=== PATIENT | female | born 1945 | race American Indian/Alaskan Native ===

== ENCOUNTER 2018-12-06 20:14 | Inpatient (IN) | payer MEDICARE ==
[~2018-12-06 20:14] MED LIST: VANCOMYCIN 2,000 MG in NACL 0.9% 500 ML 500 ML IV ONE
[2018-12-06] MEDS ORDERED: INTROPIN DRIP 800 MG/D5W 250 ML 800 MG/250 ML BAG IV ONE ×2 (20:26→22:50)
[2018-12-06] MEDS ORDERED: NACL 0.9% 1000 ML 1,000 ML IV ONE (20:28)
[2018-12-06] MEDS ORDERED: VANCOMYCIN/NS 1 GM/250 ML 1 GM/250 ML BAG IV ONE (20:29)
--- NOTE | 2018-12-06 20:33 | Emergency Department Report ---
ED Altered Mental Status HPI - General Stated Complaint: AMS Time Seen by Provider: 12/06/18 20:26 - History of Present Illness Initial Comments: Patient is 73 years old female with history of stroke and diabetes. Patient brought to the emergency room via EMS from home for evaluation of decrease unresponsiveness and altered mental status since yesterday. Family stated that patient was recently discharged from [facility] for sepsis. Upon arrival to the ER patient is gasping for breath with a GCS of 3. Patient immediately intubated by me after I discussed with the family whole indicated that patient is a full code and they want everything to be done. Patient does not have a gag reflex. Unable to obtain more history at this time. MD Complaint: altered mental status, decreased responsiveness Severity: severe - Related Data Home Medications Medication Instructions Recorded Confirmed Last Taken HYDROcodone/APAP 5-325 [[place]burn 1 tab PO Q4HR PRN 08/18/13 08/18/13 Unknown 5-325 mg TAB] Sulfamethoxazole/Trimethoprim 1 tab PO BID 08/24/13 08/24/13 Unknown [Bactrim DS] Allergies Allergy/AdvReac Type Severity Reaction Status Date / Time No Known Allergies Allergy Unverified 08/18/13 10:22 ED Review of Systems ROS: Stated complaint: AMS Other details as noted in HPI Comment: Unobtainable due to pts medical conditions ED Past Medical Hx - Past Medical History Hx Diabetes: No - Social History Smoking Status: Never Smoker - Medications Home Medications: Home Medications Medication Instructions Recorded Confirmed Last Taken Type HYDROcodone/APAP 5-325 [[place]burn 1 tab PO Q4HR PRN 08/18/13 08/18/13 Unknown History 5-325 mg TAB] Sulfamethoxazole/Trimethoprim 1 tab PO BID 08/24/13 08/24/13 Unknown History [Bactrim DS] ED Physical Exam - General General appearance: obtunded, other (gasping for breath) - Head Head exam: Present: atraumatic, normocephalic - Eye Eye exam: Present: normal appearance - ENT ENT exam: Present: mucous membranes dry - Respiratory Respiratory exam: Present: respiratory distress, rales, decreased breath sounds - Cardiovascular Cardiovascular Exam: Present: tachycardia - GI/Abdominal GI/Abdominal exam: Present: soft. Absent: distended - Neurological Exam Neurological exam: Present: altered - Skin Skin exam: Present: other (multiple pressure ulcers.) ED Course Vital Signs 12/06/18 12/06/18 20:15 21:16 Pulse Rate 116 H 99 H Respiratory 22 Rate Blood Pressure 70/40 97/45 O2 Sat by Pulse 100 100 Oximetry - Reevaluation(s) Reevaluation #1: 12/07/18 00:11 Patient went into asystole. ACLS protocol initiated. Patient received 1 mg of epi and round of CPR. Patient regained her pulse. Patient had good breath sounds on both sides. - Central Line Placement Right IJ Consent Obtained: emergent situation Time Out Performed: Yes Patient Placed on Monitor/Pulse Ox: Yes MD Prep: mask, gown, gloves Central Line Prep: Chlorhexidine scrub Local Anesthesia Used: Lidocaine 2% Ultrasound Used for Placement: Yes Central Line Lumen Inserted: triple Bloods Obtained for Lab: Yes Central Line Position: good blood return, all ports aspirated, flus, sutured in place with 2-0 Dressing Applied: Tegaderm, sterile gauze/tape Post Procedure X-Ray: tip of catheter in good p Patient Tolerated Procedure: well, no complications Complications: none - Chest Tube Chest Tube Location: forth interspace Chest Tube Procedure: betadine prep, sterile drapes applied, sterile dressing applied Anesthesia: 1% Lidocaine w/ Epi [place] of Air [place]: Yes Number of Attempts: 1 Tube Drainage: see nurses notes Tube Sutured to Skin: Yes Post Procedure CXR?: Yes - Intubation Time Out Performed: Yes Sedative: none Laryngoscope: Keren Size: 4 ET Tube Size: 7.5 Tube Secured Location: teeth Tube Placement Confirmation: visualized tube passing t, equal breath sounds bilat, no breath sounds over epi, confirmation by capnometr Patient Tolerated Procedure: well, no complications Intubation Complications: none - Lab Data Result diagrams: 12/06/18 21:17 12/06/18 21:17 Lab Results 12/06/18 12/06/18 12/06/18 Range/Units 21:17 21:17 21:17 WBC 17.8 H (4.5-11.0) K/mm3 RBC 2.77 L (3.65-5.03) M/mm3 Hgb 7.9 L (10.1-14.3) gm/dl Hct 25.3 L (30.3-42.9) % MCV 92 (79-97) fl MCH 29 (28-32) pg MCHC 31 (30-34) % RDW 15.2 (13.2-15.2) % Plt Count 176 (140-440) K/mm3 Add Manual Diff Complete Total Counted 100 Seg Neuts % (Manual) 92.0 H (40.0-70.0) % Band Neutrophils % 0 % Lymphocytes % (Manual) 4.0 L (13.4-35.0) % Reactive Lymphs % (Man) 0 % Monocytes % (Manual) 4.0 (0.0-7.3) % Eosinophils % (Manual) 0 (0.0-4.3) % Basophils % (Manual) 0 (0.0-1.8) % Metamyelocytes % 0 % Myelocytes % 0 % Promyelocytes % 0 % Blast Cells % 0 % Nucleated RBC % Not Reportable Seg Neutrophils # Man 16.4 H (1.8-7.7) K/mm3 Band Neutrophils # 0.0 K/mm3 Lymphocytes # (Manual) 0.7 L (1.2-5.4) K/mm3 Abs React Lymphs (Man) 0.0 K/mm3 Monocytes # (Manual) 0.7 (0.0-0.8) K/mm3 Eosinophils # (Manual) 0.0 (0.0-0.4) K/mm3 Basophils # (Manual) 0.0 (0.0-0.1) K/mm3 Metamyelocytes # 0.0 K/mm3 Myelocytes # 0.0 K/mm3 Promyelocytes # 0.0 K/mm3 Blast Cells # 0.0 K/mm3 WBC Morphology Not Reportable Hypersegmented Neuts Not Reportable Hyposegmented Neuts Not Reportable Hypogranular Neuts Not Reportable Smudge Cells Not Reportable Toxic Granulation Not Reportable Toxic Vacuolation Not Reportable Dohle Bodies Not Reportable Pelger-Huet Anomaly Not Reportable Abdoulaye Rods Not Reportable Platelet Estimate Consistent w auto Clumped Platelets Not Reportable Plt Clumps, EDTA Not Reportable Large Platelets Not Reportable Giant Platelets Not Reportable Platelet Satelliting Not Reportable Plt Morphology Comment Not Reportable RBC Morphology Not Reportable Dimorphic RBCs Not Reportable Polychromasia Not Reportable Hypochromasia Not Reportable Poikilocytosis Not Reportable Anisocytosis Few Microcytosis Not Reportable Macrocytosis Not Reportable Spherocytes Not Reportable Pappenheimer Bodies Not Reportable Sickle Cells Not Reportable Target Cells Few Tear Drop Cells Not Reportable Ovalocytes Not Reportable Helmet Cells Not Reportable [place] Bodies Not Reportable Orinda Rings Not Reportable [place] Cells Not Reportable Bite Cells Not Reportable Crenated Cell Not Reportable Elliptocytes Not Reportable Acanthocytes (Spur) Not Reportable Rouleaux Not Reportable Hemoglobin C Crystals Not Reportable Schistocytes Not Reportable Malaria parasites Not Reportable Mariano Bodies Not Reportable Hem Pathologist Commnt No PT (12.2-14.9) Sec. INR (0.87-1.13) APTT (24.2-36.6) Sec. POC ABG pH (7.35-7.45) POC ABG pO2 (80-105) POC ABG HCO3 (22-26 mml/L) POC ABG Total CO2 (23-27mmol/L) POC ABG O2 Sat POC ABG Base Excess ((-2) - (+3)mmol/L) FiO2 % Sodium 133 L (137-145) mmol/L Potassium 3.7 (3.6-5.0) mmol/L Chloride 92.0 L (98-107) mmol/L Carbon Dioxide 22 (22-30) mmol/L Anion Gap 23 mmol/L BUN 60 H (7-17) mg/dL Creatinine 2.9 H (0.7-1.2) mg/dL Estimated GFR 19 ml/min BUN/Creatinine Ratio 21 % Glucose 163 H (65-100) mg/dL Lactic Acid 1.70 (0.7-2.0) mmol/L Calcium 8.3 L (8.4-10.2) mg/dL Total Bilirubin 0.40 (0.1-1.2) mg/dL AST 15 (5-40) units/L ALT 6 L (7-56) units/L Alkaline Phosphatase 95 (35-129) units/L Troponin T (0.00-0.029) ng/mL NT-Pro-B Natriuret Pep (0-900) pg/mL Total Protein 5.3 L (6.3-8.2) g/dL Albumin 1.7 L (3.9-5) g/dL Albumin/Globulin Ratio 0.5 % Triglycerides (2-149) mg/dL Cholesterol (50-199) mg/dL LDL Cholesterol Direct (50-130) mg/dL HDL Cholesterol (40-59) mg/dL Cholesterol/HDL Ratio % 12/06/18 12/06/18 12/06/18 Range/Units 21:17 21:17 21:17 WBC (4.5-11.0) K/mm3 RBC (3.65-5.03) M/mm3 Hgb (10.1-14.3) gm/dl Hct (30.3-42.9) % MCV (79-97) fl MCH (28-32) pg MCHC (30-34) % RDW (13.2-15.2) % Plt Count (140-440) K/mm3 Add Manual Diff Total Counted Seg Neuts % (Manual) (40.0-70.0) % Band Neutrophils % % Lymphocytes % (Manual) (13.4-35.0) % Reactive Lymphs % (Man) % Monocytes % (Manual) (0.0-7.3) % Eosinophils % (Manual) (0.0-4.3) % Basophils % (Manual) (0.0-1.8) % Metamyelocytes % % Myelocytes % % Promyelocytes % % Blast Cells % % Nucleated RBC % Seg Neutrophils # Man (1.8-7.7) K/mm3 Band Neutrophils # K/mm3 Lymphocytes # (Manual) (1.2-5.4) K/mm3 Abs React Lymphs (Man) K/mm3 Monocytes # (Manual) (0.0-0.8) K/mm3 Eosinophils # (Manual) (0.0-0.4) K/mm3 Basophils # (Manual) (0.0-0.1) K/mm3 Metamyelocytes # K/mm3 Myelocytes # K/mm3 Promyelocytes # K/mm3 Blast Cells # K/mm3 WBC Morphology Hypersegmented Neuts Hyposegmented Neuts Hypogranular Neuts Smudge Cells Toxic Granulation Toxic Vacuolation Dohle Bodies Pelger-Huet Anomaly Abdoulaye Rods Platelet Estimate Clumped Platelets Plt Clumps, EDTA Large Platelets Giant Platelets Platelet Satelliting Plt Morphology Comment RBC Morphology Dimorphic RBCs Polychromasia Hypochromasia Poikilocytosis Anisocytosis Microcytosis Macrocytosis Spherocytes Pappenheimer Bodies Sickle Cells Target Cells Tear Drop Cells Ovalocytes Helmet Cells [place] Bodies [place] Rings Tasia Cells Bite Cells Crenated Cell Elliptocytes Acanthocytes (Spur) Rouleaux Hemoglobin C Crystals Schistocytes Malaria parasites Mariano Bodies Hem Pathologist Commnt PT 18.1 H (12.2-14.9) Sec. INR 1.54 H (0.87-1.13) APTT 34.7 (24.2-36.6) Sec. POC ABG pH (7.35-7.45) POC ABG pO2 (80-105) POC ABG HCO3 (22-26 mml/L) POC ABG Total CO2 (23-27mmol/L) POC ABG O2 Sat POC ABG Base Excess ((-2) - (+3)mmol/L) FiO2 % Sodium (137-145) mmol/L Potassium (3.6-5.0) mmol/L Chloride (98-107) mmol/L Carbon Dioxide (22-30) mmol/L Anion Gap mmol/L BUN (7-17) mg/dL Creatinine (0.7-1.2) mg/dL Estimated GFR ml/min BUN/Creatinine Ratio % Glucose (65-100) mg/dL Lactic Acid (0.7-2.0) mmol/L Calcium (8.4-10.2) mg/dL Total Bilirubin (0.1-1.2) mg/dL AST (5-40) units/L ALT (7-56) units/L Alkaline Phosphatase (35-129) units/L Troponin T 0.132 H* (0.00-0.029) ng/mL NT-Pro-B Natriuret Pep 03599 H (0-900) pg/mL Total Protein (6.3-8.2) g/dL Albumin (3.9-5) g/dL Albumin/Globulin Ratio % Triglycerides 88 (2-149) mg/dL Cholesterol 59 (50-199) mg/dL LDL Cholesterol Direct 14 L (50-130) mg/dL HDL Cholesterol 25 L (40-59) mg/dL Cholesterol/HDL Ratio 2.36 % 12/06/18 12/06/18 Range/Units 21:47 22:58 WBC (4.5-11.0) K/mm3 RBC (3.65-5.03) M/mm3 Hgb (10.1-14.3) gm/dl Hct (30.3-42.9) % MCV (79-97) fl MCH (28-32) pg MCHC (30-34) % RDW (13.2-15.2) % Plt Count (140-440) K/mm3 Add Manual Diff Total Counted Seg Neuts % (Manual) (40.0-70.0) % Band Neutrophils % % Lymphocytes % (Manual) (13.4-35.0) % Reactive Lymphs % (Man) % Monocytes % (Manual) (0.0-7.3) % Eosinophils % (Manual) (0.0-4.3) % Basophils % (Manual) (0.0-1.8) % Metamyelocytes % % Myelocytes % % Promyelocytes % % Blast Cells % % Nucleated RBC % Seg Neutrophils # Man (1.8-7.7) K/mm3 Band Neutrophils # K/mm3 Lymphocytes # (Manual) (1.2-5.4) K/mm3 Abs React Lymphs (Man) K/mm3 Monocytes # (Manual) (0.0-0.8) K/mm3 Eosinophils # (Manual) (0.0-0.4) K/mm3 Basophils # (Manual) (0.0-0.1) K/mm3 Metamyelocytes # K/mm3 Myelocytes # K/mm3 Promyelocytes # K/mm3 Blast Cells # K/mm3 WBC Morphology Hypersegmented Neuts Hyposegmented Neuts Hypogranular Neuts Smudge Cells Toxic Granulation Toxic Vacuolation Dohle Bodies Pelger-Huet Anomaly Abdoulaye Rods Platelet Estimate Clumped Platelets Plt Clumps, EDTA Large Platelets Giant Platelets Platelet Satelliting Plt Morphology Comment RBC Morphology Dimorphic RBCs Polychromasia Hypochromasia Poikilocytosis Anisocytosis Microcytosis Macrocytosis Spherocytes Pappenheimer Bodies Sickle Cells Target Cells Tear Drop Cells Ovalocytes Helmet Cells Mo-[place] Bodies [place] Rings [place] Cells Bite Cells Crenated Cell Elliptocytes Acanthocytes (Spur) Rouleaux Hemoglobin C Crystals Schistocytes Malaria parasites Mariano Bodies Hem Pathologist Commnt PT (12.2-14.9) Sec. INR (0.87-1.13) APTT (24.2-36.6) Sec. POC ABG pH 7.538 H (7.35-7.45) POC ABG pO2 61 L (80-105) POC ABG HCO3 20.7 (22-26 mml/L) POC ABG Total CO2 21 (23-27mmol/L) POC ABG O2 Sat 94 POC ABG Base Excess -2 ((-2) - (+3)mmol/L) FiO2 100 % Sodium (137-145) mmol/L Potassium (3.6-5.0) mmol/L Chloride (98-107) mmol/L Carbon Dioxide (22-30) mmol/L Anion Gap mmol/L BUN (7-17) mg/dL Creatinine (0.7-1.2) mg/dL Estimated GFR ml/min BUN/Creatinine Ratio % Glucose (65-100) mg/dL Lactic Acid 2.80 H* (0.7-2.0) mmol/L Calcium (8.4-10.2) mg/dL Total Bilirubin (0.1-1.2) mg/dL AST (5-40) units/L ALT (7-56) units/L Alkaline Phosphatase (35-129) units/L Troponin T (0.00-0.029) ng/mL NT-Pro-B Natriuret Pep (0-900) pg/mL Total Protein (6.3-8.2) g/dL Albumin (3.9-5) g/dL Albumin/Globulin Ratio % Triglycerides (2-149) mg/dL Cholesterol (50-199) mg/dL LDL Cholesterol Direct (50-130) mg/dL HDL Cholesterol (40-59) mg/dL Cholesterol/HDL Ratio % - EKG Data -: EKG Interpreted by Me EKG shows normal: sinus rhythm Rate: normal Interpretation: no acute changes - Radiology Data Radiology results: report reviewed - Medical Decision Making Patient is 73 years old female with history of stroke and diabetes. Patient brought to the emergency room via EMS from home for evaluation of decrease unresponsiveness and altered mental status since yesterday. Family stated that patient was recently discharged from [facility] for sepsis. Upon arrival to the ER patient is gasping for breath with a GCS of 3. Patient immediately intubated by me after I discussed with the family whole indicated that patient is a full code and they want everything to be done. Patient does not have a gag reflex. Unable to obtain more history at this time. Patient found to be in severe sepsis with a blood pressure 77/35. Patient started with normal saline. Right internal jugular central line placed by me for resuscitation and vasopressor. Patient is started on Levophed. Chest x-ray showed a right sided pneumothorax, moderate. Chest tube placed by me with no complication. I discussed the patient with Dr. Elias, he agreed to admit the patient to medical service. Critical Care Time: Yes Critical care time in (mins) excluding proc time.: 60 Critical care attestation.: If time is entered above; I have spent that time in minutes in the direct care of this critically ill patient, excluding procedure time. ED Disposition Clinical Impression: Acute respiratory failure, Severe sepsis, Pneumothorax on right, Cardiopulmonary arrest Disposition: 09 OP ADMIT IP TO THIS HOSP Is pt being admited?: Yes Condition: Stable Referrals: PRIMARY CARE, [Primary Care Provider] - 3-5 Days
[2018-12-06] MEDS ORDERED: ZOSYN/NS 3.375GM/50ML 3.375 GM/50 ML BAG IV ONE (21:00)
[2018-12-06] MEDS ORDERED: LEVOPHED DRIP 4 MG/NS 250 ML 4 MG/250 ML BAG IV ONE (21:05)
[2018-12-06] MEDS ORDERED: LEVOPHED DRIP 4 MG/NS 250 ML 4 MG/250 ML BAG IV SCH ×2 (21:12→22:00)
[2018-12-06 21:29] LABS: Hematocrit 25.3 % (30.3-42.9); Hemoglobin 7.9 gm/dl (10.1-14.3); Mean Corpuscular HGB Conc 31 % (30-34); Mean Corpuscular Volume 92 fl (79-97); Platelet Count 176 K/mm3 (140-440); Red Blood Count 2.77 M/mm3 (3.65-5.03); Red Cell Distribution Width 15.2 % (13.2-15.2)
[2018-12-06 21:41] LABS: INR 1.54 (0.87-1.13)
[2018-12-06 21:42] LABS: Partial Thromboplastin Time 34.7 Sec. (24.2-36.6)
[2018-12-06 21:53] LABS: Albumin 1.7 g/dL (3.9-5); Calcium 8.3 mg/dL (8.4-10.2)
[2018-12-06 22:00] LABS: Basophils % (Manual) 0 % (0.0-1.8); Eosinophils % (Manual) 0 % (0.0-4.3); Total Cells Counted 100
[2018-12-06 22:02] LABS: Anisocytosis Few; Platelet Estimate Consistent w Auto; Target Cells Few
--- NOTE | 2018-12-06 22:24 | XRay Report ---
CHEST 1 VIEW, 12/06/2018 9:45 PM INDICATION: Altered mental status. Endotracheal tube placement. COMPARISON: None. Previous chest radiograph was unable to be retrieved from the archives. FINDINGS: Support devices: Nasogastric tube is present with tip below the level of the diaphragm. Endotracheal tube is present with tip approximately 2 cm above the level of the pineda. A right sided central cat heter projects over the right chest with tip overlying the right upper mediastinum. The placement of the tip is indeterminate. Heart: The cardiac silhouette is normal in size. Lungs/pleura: There is a moderate sized right-sided pneumothorax. The left lung appears grossly clear . IMPRESSION: 1. Moderate sized right-sided pneumothorax. 2. Right-sided central catheter with indeterminate tip positioning. Positive critical value of right-sided pneumothorax was identified at 9:10 PM and personally communic ated to the charge nurse Modesta Skinner at 9:18 PM. The positioning of the right-sided central line tip was also directly communicated. A read back was performed. Signer Name: Barb Burk MD Signed: 12/06/2018 10:20 PM Workstation Name: [id number]
[2018-12-06 22:25] LABS: Chol/HDL Ratio 2.36 %
--- NOTE | 2018-12-06 23:05 | XRay Report ---
CHEST 1 VIEW INDICATION / CLINICAL INFORMATION: chest tube placement. COMPARISON: 12/06/2018 at 2145 hours FINDINGS: SUPPORT DEVICES: Nasogastric tube, right central venous line, small caliber right pleural drainage tu be HEART / MEDIASTINUM: No significant abnormality. LUNGS / PLEURA: No significant pulmonary or pleural abnormality. No pneumothorax. ADDITIONAL FINDINGS: No significant additional findings. IMPRESSION: 1. Placement of small caliber right pleural drainage tube with near complete resolution of the right- sided pneumothorax from earlier today. 2. The course of the right central venous line is unusual Signer Name: Estevan Michelle MD FACR Signed: 12/06/2018 11:01 PM Workstation Name: [id number]
[2018-12-07] MEDS ORDERED: ZOFRAN IV PRN (00:40)
[2018-12-07] MEDS ORDERED: TYLENOL PO PRN (00:40)
[2018-12-07] MEDS ORDERED: SODIUM CHLORIDE FLUSH SYRINGE 10 ML IV PRN (00:40)
[2018-12-07] MEDS ORDERED: VASELINE LIP THERAPY TP PRN (00:43)
[2018-12-07] MEDS ORDERED: ARTIFICIAL TEARS OPHTH OINT OU PRN (00:43)
[2018-12-07] MEDS ORDERED: INTROPIN DRIP 800 MG/D5W 250 ML 800 MG/250 ML BAG IV ONE (00:46)
[2018-12-07] MEDS ORDERED: NACL 0.9% 1000 ML 1,000 ML IV ONE (00:53)
[2018-12-07] MEDS ORDERED: NACL 0.9% 1000 ML 1,000 ML IV SCH (01:00)
--- NOTE | 2018-12-07 01:03 | History and Physical Report ---
History of Present Illness Date of examination: 12/07/18 Chief complaint: AMS per report History of present illness: Patient is a 73-year-old female with history of stroke with residual right-sided weakness who was brought to the ED via EMS on account of altered mental status. Of note, pt was unable to provide history, so history was obtained from the who was at the bedside. He reported that the patient was discharged from the hospital about 4 months ago after which she was discharged to a rehabilitation facility and subsequently discharged to home on hospice. However, her code status remained a full code. Yesterday, the found the unresponsive at about 11 AM, so he called the hospice nurse. Prior to that, he stated that the complained of left shoulder pain which is chronic and nausea without vomiting. No reported history of chest pain, shor tness of breath or recent fall. Past History Past Medical History: diabetes, hypertension, other (stroke with residual right- sided weakness) Past Surgical History: No surgical history Social history: no significant social history (no reported history of tobacco, alcohol or illicit drug use) Family history: other (her mom had hypertension and diabetes per the ) Medications and Allergies Allergies Allergy/AdvReac Type Severity Reaction Status Date / Time No Known Allergies Allergy Unverified 08/18/13 10:22 Home Medications Medication Instructions Recorded Confirmed Last Taken Type HYDROcodone/APAP 5-325 [Borger 1 tab PO Q4HR PRN 08/18/13 08/18/13 Unknown History 5-325 mg TAB] Sulfamethoxazole/Trimethoprim 1 tab PO BID 08/24/13 08/24/13 Unknown History [Bactrim DS] Active Meds: Active Medications Acetaminophen (Tylenol) 650 mg PO Q4H PRN PRN Reason: Pain MILD(1-3)/Fever >100.5/SOTO Heparin Sodium (Porcine) (Heparin) 5,000 unit SUB-Q Q8HR [facility]AN Hydrophilic Ointment (Vaseline Lip Therapy) 1 applic TP Q2HR PRN PRN Reason: Dry Lips Norepinephrine (Levophed Drip 4 Mg/Ns 250 Ml) 4 mg in 250 mls @ 7.5 mls/hr IV TITR J[facility]ONATAN; Protocol Last Titration: 12/06/18 22:50 Dose: 20 mcg/min, 75 mls/hr Documented by: Dopamine HCl/Dextrose (Intropin Drip 800 Mg/D5w 250 Ml) 800 mg in 250 mls @ 3.825 mls/hr IV TITR ONE; Protocol Stop: 12/09/18 18:07 Sodium Chloride (Nacl 0.9% 1000 Ml) 1,000 mls @ 999 mls/hr IV BOLUS ONE Stop: 12/07/18 01:53 Sodium Chloride (Nacl 0.9% 1000 Ml) 1,000 mls @ 100 mls/hr IV DIRECT [facility] Multi-Ingred Cream/Lotion/Oil/Oint (Artificial Tears Ophth Oint) 1 applic OU Q4HR PRN PRN Reason: Dry Eye(s) Ondansetron HCl (Zofran) 4 mg IV Q8H PRN PRN Reason: Nausea And Vomiting Sodium Chloride (Sodium Chloride Flush Syringe 10 Ml) 10 ml IV BID J[facility]ATAN Sodium Chloride (Sodium Chloride Flush Syringe 10 Ml) 10 ml IV PRN PRN PRN Reason: LINE FLUSH Review of Systems ROS unobtainable: due to mental status Exam - Constitutional Vitals: Temp Pulse Resp BP Pulse Ox 99 H 22 97/45 100 12/06/18 21:16 12/06/18 20:15 12/06/18 21:16 12/06/18 21:16 General appearance: Present: no acute distress, obese, other (patient is intubated and on mechanical ventilator) - EENT Eyes: Present: irregular pupil ENT: other (patient is intubated ) - Neck Neck: Present: supple - Respiratory Respiratory effort: normal Respiratory: bilateral: diminished - Cardiovascular Rhythm: regular Heart Sounds: Present: S1 & S2 - Extremities Extremities: No edema - Abdominal General gastrointestinal: Present: soft, non-tender, normal bowel sounds, other (obese) Female genitourinary: Present: deferred - Integumentary Integumentary: Present: erythema - Musculoskeletal Musculoskeletal: right sided weakness (draining ulcers in bilateral heels) - Psychiatric Psychiatric: other (could not be assessed because patient is intubated) - Neurologic Neurologic: other (patient is intubated and on mechanical ventilator) Results - Labs CBC & Chem 7: 12/06/18 21:17 12/06/18 21:17 Labs: Laboratory Last Values WBC 17.8 K/mm3 (4.5-11.0) H 12/06/18 21:17 RBC 2.77 M/mm3 (3.65-5.03) L 12/06/18 21:17 Hgb 7.9 gm/dl (10.1-14.3) L 12/06/18 21:17 Hct 25.3 % (30.3-42.9) L 12/06/18 21:17 MCV 92 fl (79-97) 12/06/18 21:17 MCH 29 pg (28-32) 12/06/18 21:17 MCHC 31 % (30-34) 12/06/18 21:17 RDW 15.2 % (13.2-15.2) 12/06/18 21:17 Plt Count 176 K/mm3 (140-440) 12/06/18 21:17 Add Manual Diff Complete 12/06/18 21:17 Total Counted 100 12/06/18 21:17 Seg Neuts % (Manual) 92.0 % (40.0-70.0) H 12/06/18 21:17 0 % 12/06/18 21:17 4.0 % (13.4-35.0) L 12/06/18 21:17 Reactive Lymphs % (Man) 0 % 12/06/18 21:17 4.0 % (0.0-7.3) 12/06/18 21:17 0 % (0.0-4.3) 12/06/18 21:17 0 % (0.0-1.8) 12/06/18 21:17 0 % 12/06/18 21:17 0 % 12/06/18 21:17 0 % 12/06/18 21:17 0 % 12/06/18 21:17 Nucleated RBC % Not Reportable 12/06/18 21:17 Seg Neutrophils # Man 16.4 K/mm3 (1.8-7.7) H 12/06/18 21:17 Band Neutrophils # 0.0 K/mm3 12/06/18 21:17 0.7 K/mm3 (1.2-5.4) L 12/06/18 21:17 Abs React Lymphs (Man) 0.0 K/mm3 12/06/18 21:17 0.7 K/mm3 (0.0-0.8) 12/06/18 21:17 0.0 K/mm3 (0.0-0.4) 12/06/18 21:17 0.0 K/mm3 (0.0-0.1) 12/06/18 21:17 0.0 K/mm3 12/06/18 21:17 0.0 K/mm3 12/06/18 21:17 0.0 K/mm3 12/06/18 21:17 Blast Cells # 0.0 K/mm3 12/06/18 21:17 WBC Morphology Not Reportable 12/06/18 21:17 Hypersegmented Neuts Not Reportable 12/06/18 21:17 Hyposegmented Neuts Not Reportable 12/06/18 21:17 Hypogranular Neuts Not Reportable 12/06/18 21:17 Not Reportable 12/06/18 21:17 Not Reportable 12/06/18 21:17 Not Reportable 12/06/18 21:17 Not Reportable 12/06/18 21:17 Not Reportable 12/06/18 21:17 Not Reportable 12/06/18 21:17 Consistent w auto 12/06/18 21:17 Not Reportable 12/06/18 21:17 Plt Clumps, EDTA Not Reportable 12/06/18 21:17 Not Reportable 12/06/18 21:17 Not Reportable 12/06/18 21:17 Not Reportable 12/06/18 21:17 Plt Morphology Comment Not Reportable 12/06/18 21:17 RBC Morphology Not Reportable 12/06/18 21:17 Dimorphic RBCs Not Reportable 12/06/18 21:17 Not Reportable 12/06/18 21:17 Not Reportable 12/06/18 21:17 Not Reportable 12/06/18 21:17 Few 12/06/18 21:17 Not Reportable 12/06/18 21:17 Not Reportable 12/06/18 21:17 Not Reportable 12/06/18 21:17 Not Reportable 12/06/18 21:17 Not Reportable 12/06/18 21:17 Few 12/06/18 21:17 Not Reportable 12/06/18 21:17 Not Reportable 12/06/18 21:17 Not Reportable 12/06/18 21:17 Not Reportable 12/06/18 21:17 Not Reportable 12/06/18 21:17 Not Reportable 12/06/18 21:17 Not Reportable 12/06/18 21:17 Not Reportable 12/06/18 21:17 Not Reportable 12/06/18 21:17 Acanthocytes (Spur) Not Reportable 12/06/18 21:17 Rouleaux Not Reportable 12/06/18 21:17 Not Reportable 12/06/18 21:17 Not Reportable 12/06/18 21:17 Not Reportable 12/06/18 21:17 Not Reportable 12/06/18 21:17 Hem Pathologist Commnt No 12/06/18 21:17 PT 18.1 Sec. (12.2-14.9) H 12/06/18 21:17 INR 1.54 (0.87-1.13) H 12/06/18 21:17 APTT 34.7 Sec. (24.2-36.6) 12/06/18 21:17 POC ABG pH 7.538 (7.35-7.45) H 12/06/18 21:47 POC ABG pO2 61 (80-105) L 12/06/18 21:47 POC ABG HCO3 20.7 (22-26 mml/L) 12/06/18 21:47 POC ABG Total CO2 21 (23-27mmol/L) 12/06/18 21:47 POC ABG O2 Sat 94 12/06/18 21:47 POC ABG Base Excess -2 ((-2) - (+3)mmol/L) 12/06/18 21:47 100 % 12/06/18 21:47 Sodium 133 mmol/L (137-145) L 12/06/18 21:17 Potassium 3.7 mmol/L (3.6-5.0) 12/06/18 21:17 Chloride 92.0 mmol/L (98-107) L 12/06/18 21:17 Carbon Dioxide 22 mmol/L (22-30) 12/06/18 21:17 23 mmol/L 12/06/18 21:17 BUN 60 mg/dL (7-17) H 12/06/18 21:17 2.9 mg/dL (0.7-1.2) H 12/06/18 21:17 Estimated GFR 19 ml/min 12/06/18 21:17 21 % 12/06/18 21:17 Glucose 163 mg/dL (65-100) H 12/06/18 21:17 Lactic Acid 2.80 mmol/L (0.7-2.0) H* 12/06/18 22:58 Calcium 8.3 mg/dL (8.4-10.2) L 12/06/18 21:17 0.40 mg/dL (0.1-1.2) 12/06/18 21:17 AST 15 units/L (5-40) 12/06/18 21:17 ALT 6 units/L (7-56) L 12/06/18 21:17 95 units/L (35-129) 12/06/18 21:17 0.132 ng/mL (0.00-0.029) H* 12/06/18 21:17 NT-Pro-B Natriuret Pep 06065 pg/mL (0-900) H 12/06/18 21:17 5.3 g/dL (6.3-8.2) L 12/06/18 21:17 1.7 g/dL (3.9-5) L 12/06/18 21:17 0.5 % 12/06/18 21:17 Triglycerides 88 mg/dL (2-149) 12/06/18 21:17 Cholesterol 59 mg/dL (50-199) 12/06/18 21:17 14 mg/dL (50-130) L 12/06/18 21:17 25 mg/dL (40-59) L 12/06/18 21:17 2.36 % 12/06/18 21:17 Assessment and Plan Assessment and plan: Septic shock -Probably secondary to infected ulcers in bilateral heel -On sepsis protocol with IV pressors -Blood cultures pending Acute respiratory failure with hypoxia -Status post intubation on mechanical ventilator -Pulmonology consulted Acute toxic/metabolic encephalopathy -Head CT scan pending Central line placement complicated by right sided pneumothorax -Status post right chest tube placement -We'll monitor with daily chest x-ray Infected ulcers in bilateral heel -Wound care nurse consulted Acute renal failure -Baseline creatinine unknown -On IV fluid, will monitor creatinine level Elevated BNP -No prior history of CHF -We'll order echocardiogram to assess EF and valvular function Elevated troponin -Probably secondary to the sepsis -We'll continue serial troponin level monitoring -Echocardiogram pending -Consult cardiology in a.m. if needed IDDM2 -Will place pt on SSI Anemia of chronic disease -We'll monitor H&H and transfuse as needed Severe protein calorie malnutrition -Cut And Cover Line Worker consulted DVT prophylaxis with heparin and GI prophylaxis with Famotidine I spent 45 minutes providing critical care to this seriously ill patient who requires frequent reassessments of her respiratory, cardiovascular and mental status.
[2018-12-07] MEDS ORDERED: ADRENALIN ONE (01:20)
--- NOTE | 2018-12-07 01:30 | Death Note ---
Note Date of : 12/07/18 Time of : : Time Pronounced: : - Preliminary Cause of (problem) (1) Cardiopulmonary arrest Preliminary cause of
[2018-12-07 01:54] VITALS: BP 145/79
--- NOTE | 2018-12-07 02:02 | Discharge Summary ---
Providers - Providers Date of Admission: 12/07/18 00:40 Date of discharge: 12/07/18 Attending physician: TAVO WELSH 12/07/18 00:43 Consult to Dietitian/Nutrition [CONS] Routine Physician Instructions: Reason For Exam: Reason for Consult: Evaluate nutritional intake 12/07/18 00:49 Consult to Physician [CONS] Routine Comment: Consulting Provider: VENANCIO MEDRANO Physician Instructions: Reason For Exam: ACUTE HYPOXIC RESPT FAILURE 12/07/18 01:06 Consult to Wound/ET Nurse [CONS] Routine Reason For Exam: wound eval Primary care physician: WIRE STITCHER OPERATOR Hospitalization Reason for admission: Septic shock, S/p Cardiac arrest x2, Acute respiratory failure with hypoxia Hospital course: Final discharge diagnosis: Septic shock, probably secondary to infected ulcers in bilateral heel S/p Cardiac arrest x2 Acute respiratory failure with hypoxia Acute toxic/metabolic encephalopathy Central line placement complicated by right sided pneumothorax Infected ulcers in bilateral heel Acute renal failure Elevated BNP Elevated troponin IDDM2 Anemia of chronic disease Severe protein calorie malnutrition In the ED, patient was emergently intubated and placed on a mechanical ventilator. Central line was placed which was complicated by right-sided pneumothorax. Right chest tube was then placed. Subsequently, patient was coded twice in the ED. Prior to admission, patient's made her a DO NOT RESUSCITATE only. She was later admitted and placed on sepsis protocol. Thereafter, she coded again and was pronounced at 1.22am on 12/07/2018. Disposition: DC-20 Core Measure Documentation - Palliative Care Palliative Care/ Comfort Measures: Not Applicable - Core Measures Any of the following diagnoses?: none Exam - Physical Exam Narrative exam: Please see the H&P and notes on 12/07/18 - Constitutional Vitals: Temp Pulse Resp BP Pulse Ox 31 L 0 L 145/79 100 12/07/18 01:15 12/07/18 01:35 12/07/18 01:35 12/07/18 01:05 Plan Follow up with: SASCHA ANGELA MD [Primary Care Provider] - 3-5 Days
[2018-12-07] MEDS ORDERED: HEPARIN SUB-Q SCH (06:00)
[2018-12-07] MEDS ORDERED: PEPCID IV SCH (10:00)
[2018-12-07] MEDS ORDERED: SODIUM CHLORIDE FLUSH SYRINGE 10 ML IV SCH (10:00)
--- NOTE | 2018-12-07 11:49 | Event Note ---
Date: 12/07/18 I was not informed of this consult.
== END 2018-12-07 01:55 | DRG 871 ==
LOC: ED 20:14 → CC1 12-07 00:40
PROVIDERS: ADMIT Internal Medicine; ATTEND Internal Medicine
PROC: 5A1935Z Respiratory Ventilation, Less than 24 Consecutive Hours (ICD-10-PCS; principal; 2018-12-07)
PROC: 0BH17EZ Insertion of Endotracheal Airway into Trachea, Via Natural or Artificial Opening (ICD-10-PCS; 2018-12-07)
PROC: 4A033R1 Measurement of Arterial Saturation, Peripheral, Percutaneous Approach (ICD-10-PCS; 2018-12-07)
PROC: 5A12012 Performance of Cardiac Output, Single, Manual (ICD-10-PCS; 2018-12-07)
PROC: 0W9930Z Drainage of Right Pleural Cavity with Drainage Device, Percutaneous Approach (ICD-10-PCS; 2018-12-07)
PROC: 05HY33Z Insertion of Infusion Device into Upper Vein, Percutaneous Approach (ICD-10-PCS; 2018-12-07)
DX: A41.9 Sepsis, unspecified organism (principal); R65.21 Severe sepsis with septic shock; J96.01 Acute respiratory failure with hypoxia; G92 Toxic encephalopathy; E43 Unspecified severe protein-calorie malnutrition; L97.429 Non-pressure chronic ulcer of left heel and midfoot with unspecified severity; L97.419 Non-pressure chronic ulcer of right heel and midfoot with unspecified severity; J93.9 Pneumothorax, unspecified; I69.351 Hemiplegia and hemiparesis following cerebral infarction affecting right dominant side; N17.9 Acute kidney failure, unspecified; I46.9 Cardiac arrest, cause unspecified; G89.29 Other chronic pain; D63.8 Anemia in other chronic diseases classified elsewhere; Z68.38 Body mass index [BMI] 38.0-38.9, adult; E11.9 Type 2 diabetes mellitus without complications
CPT/HCPCS: 36415; 71045; 80053; 80061; 82140; 82803; 83880; 84484; 85007; 85025; 85610; 85730; 87040; 87070; 87076; 87186; 87205; 93005; 93010; 94002; G0378; J0171; J1265; J2543; J3370; J7030; J7040